=== PATIENT | female | born 1945 | race Caucasian/White ===

== ENCOUNTER 2019-07-21 16:00 | Emergency (ER) | payer OTHER, SELFPAY ==
[2019-07-21 16:28] VITALS: BP 152/88; PULSE 97; RESP 16; TEMP 36.6; O2SAT 96; BMI 25.6
--- NOTE | 2019-07-21 19:22 | ECG_ITS ---
Measurements Intervals [place] Rate: 83 P: 30 GA: 160 QRS: 4 QRSD: 68 T: 36 QT: 376 QTc: 442 SINUS RHYTHM LOW QRS VOLTAGE IN PRECORDIAL LEADS [QRS DEFLECTION < 1.0 mV IN CHEST LEADS] Compared to ECG 05/03/2019 17:25:44 Low QRS voltage now present Electronically Signed On 07-22-2019 6:46:41 INFORMATION TECHNOLOGY PROJECT MANAGER by Camryn Michel M.D. [id number]
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
--- NOTE | 2019-07-21 19:22 | XR_ITS ---
WS: [id number] Chest PA view, 07/21/2019 Clinical Data: admission Comparison: PA and lateral chest, 11/17/2017 Findings: No nodules, masses or effusions are seen. The heart is normal. The pulmonary vascularity is not increased. No pneumonia or pneumothorax is seen. There is a right cardiophrenic fat pad or cyst present. The aortic arch and descending aorta show mild calcification and tortuosity. XR/XR chest 1V portable [id number] Impression: Atherosclerosis.
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
--- NOTE | 2019-07-21 19:38 | PC.NURSE ---
Patient taken to radiology via wheelchair. Patient complaining of waiting times.
[2019-07-21 21:19] VITALS: BP 141/74; PULSE 85; RESP 18; O2SAT 96
== END 2019-07-21 21:22 | disposition home or self-care (01) ==
PROVIDERS: Emergency Provider Nurse Practitioner Family; Family Provider Family Medicine; PCP Family Medicine
DX: S29.012A Strain of muscle and tendon of back wall of thorax, initial encounter (principal); V89.2XXA Person injured in unspecified motor-vehicle accident, traffic, initial encounter; Z87.891 Personal history of nicotine dependence
CPT/HCPCS: 71045; 72040; 72072; 93005; 99282

== ENCOUNTER → 2019-11-05 13:17 | Outpatient (BNVA) | payer OTHER, SELFPAY | PROVIDERS: Family Provider Family Medicine; PCP Family Medicine; Referring Provider Family Medicine; Visit Provider Orthopaedic Surgery | DX: M25.511 Pain in right shoulder (principal) | CPT/HCPCS: 73030 ==

== ENCOUNTER 2021-03-29 11:56 | Outpatient (CLI) | payer MEDICARE, SELFPAY ==
--- NOTE | 2021-03-29 12:07 | MM_ITS ---
WS: [id number] BILATERAL SCREENING DIGITAL MAMMOGRAM WITH CAD HISTORY: SCREENING COMPARISON: 02/19/2019 and 11/17/2017 Bilateral CC and MLO views submitted. Computer aided detection analyzed. Breast composition: There are scattered areas of fibroglandular density. No suspicious masses, microc alcifications or architectural distortion. Benign intramammary lymph nodes. MM/[id number] IMPRESSION: BI-RADS: 2-Benign FOLLOW UP: 1 Year Follow-up
== END 2021-03-29 11:57 | disposition home or self-care (01) ==
PROVIDERS: PCP Family Medicine; Visit Provider Family Medicine
DX: Z12.31 Encounter for screening mammogram for malignant neoplasm of breast (principal)
CPT/HCPCS: 77067

== ENCOUNTER 2021-11-29 10:33 | Emergency (ER) | payer MEDICARE, SELFPAY ==
[2021-11-29 11:17] VITALS: BP 138/85; PULSE 76; RESP 18; O2SAT 96; BMI 26.6
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
[2021-11-29 12:21] VITALS: BP 132/76; PULSE 84; RESP 16; O2SAT 97
--- NOTE | 2021-11-29 12:23 | MR_ITS ---
WS: [id number] MRI HEAD WITHOUT CONTRAST TECHNIQUE: Sagittal T1, T2 axial, T2 axial FLAIR, axial and coronal T1 images, axial susceptibility w eighted imaging, axial diffusion weighted images, and coronal T2 images were obtained. CLINICAL INFORMATION: visual field changes with vertigo COMPARISON: MRI [id number] FINDINGS: Patchy area of restricted diffusion involving the RIGHT parasagittal occipital lobe consistent with a cute ischemia. Mild associated edema in this area. Area of acute ischemia measures approximately 2.5 x 1.8 cm and involves the cortex. No other foci of restricted diffusion. No midline shift or signific ant mass effect. Moderate chronic small vessel changes. Moderate parenchymal volume loss. A few tiny chronic lacunar infarcts in the cerebellum. Normal vascular flow voids at the skull base. No extra-axial fluid collec tions. Mucosal thickening in the paranasal sinuses. Visualized orbits are normal. Mastoid air cells w ell aerated. Normal posterior nasopharynx and parapharyngeal fat. Mild small vessel changes in the toan. No significant hemosiderin on the susceptibly weighted images. Normal optic chiasm and pituitary infundibulum. Moderate symmetric atrophy temporal lobes and hippoc ampal formations. Normal cavernous sinuses and Meckel's cave. MR/MR head wo con* [id number] IMPRESSION: 1. Patchy acute ischemia involving the RIGHT parasagittal occipital lobe invol ving the cortex described above measuring 2.5 x 1.8 cm. 2. Mild associated edema in the area of ischemia. No significant mass effect o r midline shift. 3. Moderate small vessel changes with moderate parenchymal volume loss. 4. No hemosiderin on susceptibly weighted images. 5. No other acute findings. Notified Gurjit Sylvester DO at 11/29/2021 4:24 PM.
[2021-11-29 12:52] LABS: Basophils # 0.1 10^3/uL (0.0-0.1); Basophils % 0.9 %; Eosinophils # 0.4 10^3/uL (0.0-0.8); Eosinophils % 5.1 %; Hematocrit 43.8 % (37.0-47.0); Hemoglobin 14.4 g/dL (11.5-15.3); Lymphocytes # 1.8 10^3/uL (0.8-4.8); Lymphocytes % 21.3 %; Mean Corpuscular HGB Conc 32.9 g/dL (30.0-36.0); Mean Corpuscular Hemoglobin 30.4 pg (28.0-34.0); Mean Corpuscular Volume 92.4 fl (81-99); Mean Platelet Volume 9.2 fL (7.4-10.4); Monocytes # 0.9 10^3/uL (0.2-0.9); Monocytes % 10.4 %; Neutrophils # 5.34 10^3/uL (1.8-7.7); Neutrophils % 61.8 %; Nucleated Red Blood Cells % 0 %; Platelet Count 342 10^3/cmm (130-400); Red Blood Count 4.74 10^6/uL (4.1-5.3); Red Cell Distribution Width 13.2 % (12.1-15.1); White Blood Count 8.6 10^3/uL (4.0-10.0)
[2021-11-29] MEDS: loperamide 2 mg Capsule 4 MG PO (13:07)
[2021-11-29 13:08] LABS: Erythrocyte Sedimentation Rate 13 mm/hr (0-15)
[2021-11-29 13:17] LABS: Alanine Aminotransferase 12 U/L (0-33); Albumin Level 4.4 g/dL (3.5-5.2); Alkaline Phosphatase 109 IU/L (35-105); Anion Gap 15.5 (5-19); Aspartate Amino Transferase 22 U/L (0-32); Blood Urea Nitrogen 15 mg/dL (8-23); Calcium 9.4 mg/dL (8.5-10.5); Carbon Dioxide 25 mmol/L (22-29); Chloride 104 mmol/L (98-107); Globulin 3.8 g/dL (1.3-4.6); Glucose 84 mg/dL (65-115); Osmolality Calculated 292 mOsm/kg (285-295); Potassium 3.5 mmol/L (3.5-5.1); Sodium 141 mmol/L (136-145); Total Bilirubin 0.2 mg/dL (0.15-1.2); Total Protein 8.2 g/dL (6.6-8.7)
[2021-11-29 14:01] VITALS: BP 147/81; PULSE 97; RESP 16; O2SAT 97
[2021-11-29 16:00] VITALS: BP 144/74; PULSE 79; RESP 14; O2SAT 97
--- NOTE | 2021-11-29 17:25 | PM.MISC ---
Miscellaneous Note Purpose of Documentation: Neuro Note: I was called by the emergency department physician. This 76-year-old woman has had symptoms for a week and has hallucinations out of her left hemifield. He did an MRI and diagnosed a right occipital stroke. She does not have any deficit except for her visual field loss. I recommended Plavix, aspirin, Lipitor and follow-up with neurology within 2 weeks. I asked him to set her up for an MRA without contrast, cervical and intracranial.
[2021-11-29 17:48] VITALS: BP 140/89; PULSE 76; RESP 14; O2SAT 95
[2021-11-29 18:12] VITALS: BP 140/89; PULSE 76; RESP 14; O2SAT 95
== END 2021-11-29 18:14 | disposition home or self-care (01) ==
PROVIDERS: Emergency Provider Emergency Medicine; PCP Family Medicine
DX: I63.9 Cerebral infarction, unspecified (principal); H53.8 Other visual disturbances; R42 Dizziness and giddiness; R44.1 Visual hallucinations; R35.0 Frequency of micturition; R39.15 Urgency of urination; Z87.891 Personal history of nicotine dependence; Z82.49 Family history of ischemic heart disease and other diseases of the circulatory system
CPT/HCPCS: 70551; 80053; 85025; 85651; 99283

== ENCOUNTER → 2021-12-19 14:05 | Outpatient (BNVA) | payer MEDICARE, SELFPAY | PROVIDERS: PCP Family Medicine; Visit Provider Specialist | DX: I69.398 Other sequelae of cerebral infarction (principal); H53.40 Unspecified visual field defects; G31.84 Mild cognitive impairment of uncertain or unknown etiology | CPT/HCPCS: 99204; 99205 ==

== ENCOUNTER → 2021-12-31 12:35 | Outpatient (BNVA) | payer MEDICARE, SELFPAY | PROVIDERS: PCP Family Medicine; Visit Provider Internal Medicine | DX: I63.531 Cerebral infarction due to unspecified occlusion or stenosis of right posterior cerebral artery (principal); I49.1 Atrial premature depolarization; I49.3 Ventricular premature depolarization | CPT/HCPCS: 93270 ==

== ENCOUNTER 2022-02-04 12:24 | Outpatient (CLI) | payer MEDICARE, SELFPAY ==
--- NOTE | 2022-02-04 13:00 | MR_ITS ---
WS: [id number] MRA ANGIOGRAPHY LIME OF [place] HISTORY: I63.531 - Cerebral infarction due to unspecified occlusion. COMPARISON: MRI head 11/29/2021 TECHNIQUE: 3-D MR angiography is performed of the [place] of [place]. All images are reviewed including source images. Absent distal RIGHT vertebral artery. Very similar to the prior MRI from 2019. Dominant LEFT vertebra l artery. Normal size basilar artery. Posterior cerebral arteries are patent. No occlusion or stenosi s.. Small caliber posterior communicating arteries. Intracranial portion of the internal carotid arteries are normal course and caliber. No significant a therosclerosis, stenosis or aneurysm identified. Middle and anterior cerebral arteries are both paten t with no significant disease. Anterior communicating artery is also normal. Remote infarct noted in the RIGHT parasagittal occipital lobe. MR/MR angio head wo con [id number] IMPRESSION: 1. No acute thrombus or occlusion. 2. Nonvisualization of the distal RIGHT vertebral artery. Very similar to the prior examination from 2019 MRI brain, nonacute. There is a dominant large LEFT vertebral artery. 3. No stenosis or occlusions or significant atherosclerotic disease.
--- NOTE | 2022-02-04 13:45 | MR_ITS ---
WS: [id number] MRA CAROTID ARTERIES HISTORY: H53.40 - Unspecified visual field defects COMPARISON: MRI brain 11/29/2021 and 03/15/2019 TECHNIQUE: MRA is performed with intravenous gadolinium. MIP and source images are reviewed. Right: Normal caliber and signal within the RIGHT cervical carotid artery. The bifurcation is widely patent. No occlusions to the skull base. Normal bifurcation. Left: Normal caliber and signal within the LEFT cervical carotid artery. The bifurcation is widely pa tent. No occlusions to the skull base. Normal bifurcation. Subclavian Arteries: Not visualized. Vertebral Arteries: Dominant LEFT vertebral artery. The RIGHT vertebral artery is not evident. This w as also not evident on the study of 03/15/2019. May be chronically occluded or congenital finding. MR/MR angio neck wo con [id number] IMPRESSION: 1. Cervical carotid arteries are widely patent with no significant stenosis. 2. Absent RIGHT vertebral artery. Unchanged from the study from 03/15/2019.
== END 2022-02-04 12:25 | disposition home or self-care (01) ==
PROVIDERS: PCP Family Medicine; Visit Provider Specialist
DX: I63.531 Cerebral infarction due to unspecified occlusion or stenosis of right posterior cerebral artery (principal); H53.40 Unspecified visual field defects
CPT/HCPCS: 70544; 70547

== ENCOUNTER → 2022-05-07 10:47 | Outpatient (BNVA) | payer MEDICARE, SELFPAY | PROVIDERS: PCP Family Medicine; Visit Provider Specialist | DX: G25.3 Myoclonus (principal); H53.452 Other localized visual field defect, left eye; I69.398 Other sequelae of cerebral infarction; Z79.01 Long term (current) use of anticoagulants | CPT/HCPCS: 99214 ==

== ENCOUNTER 2022-06-21 14:22 | Outpatient (CLI) | payer MEDICARE, SELFPAY ==
--- NOTE | 2022-06-21 14:27 | MM_ITS ---
WS: [id number] BILATERAL 3D TOMOSYNTHESIS DIGITAL SCREENING MAMMOGRAPHY WITH CAD CLINICAL INFORMATION: SCREENING HISTORY: Screening mammogram. No current complaints. COMPARISON: 2020 TECHNIQUE: Bilateral CC and MLO views. FINDINGS: Scattered fibroglandular densities bilaterally. No suspicious focal mass, asymmetry, calcifications, or architectural distortion. No evidence of malignancy. Vascular calcification. MM/[place] [id number] IMPRESSION: BI-RADS: 2-Benign FOLLOW UP: 1 Year Follow-up Recommend return to annual screening mammography.
== END 2022-06-21 14:23 | disposition home or self-care (01) ==
LOC: RAD 14:23
PROVIDERS: PCP Family Medicine; Visit Provider Family Medicine
DX: Z12.31 Encounter for screening mammogram for malignant neoplasm of breast (principal)
CPT/HCPCS: 77063; 77067

== ENCOUNTER 2023-07-23 11:31 | Outpatient (CLI) | payer MEDICARE, SELFPAY ==
--- NOTE | 2023-07-23 11:35 | MM_ITS ---
WS: [id number] Bilateral screening 3D tomosynthesis digital mammogram, 07/23/2023 Clinical Data: SCREENING Comparison: 06/21/2022, 03/29/2021, 02/19/2019, 10/21/2017, 11/15/2015, 08/10/2013, 04/30/2012, 06/24/2006. Findings: The breast parenchymal pattern shows fibroglandular tissue. No spiculated masses or clustered calcifi cations are seen. There are no secondary signs of carcinoma. Impression: 1. Negative bilateral mammogram unchanged. 2. Recommend annual screening mammograms. MM/[place] [id number] BIRADS: 1-Negative FOLLOW UP: 1 Year Follow-up The CAD raspberry checker was used.
== END 2023-07-23 11:32 | disposition home or self-care (01) ==
LOC: RAD 11:31
PROVIDERS: PCP Family Medicine; Visit Provider Family Medicine
DX: Z12.31 Encounter for screening mammogram for malignant neoplasm of breast (principal)
CPT/HCPCS: 77063; 77067

== ENCOUNTER 2024-12-08 12:59 | Outpatient (CLI) | payer MEDICARE, SELFPAY ==
--- NOTE | 2024-12-08 13:00 | MM_ITS ---
WS: [id number] BILATERAL 3D TOMOSYNTHESIS DIGITAL SCREENING MAMMOGRAPHY WITH CAD CLINICAL INFORMATION: screening HISTORY: Screening mammogram. No current complaints. COMPARISON: 2023 TECHNIQUE: Bilateral CC and MLO views. FINDINGS: Scattered fibroglandular densities bilaterally. No suspicious focal mass, asymmetry, calcifications, or architectural distortion. No evidence of malignancy. Vascular calcification. MM/MM scr tomosynthesis [id number] IMPRESSION: DENSITY: There are scattered areas of fibroglandular density. BI-RADS: 2 - Benign. FOLLOW UP: 1 Year Follow-up Recommend return to annual screening mammography.
--- NOTE | 2024-12-08 13:05 | XR_ITS ---
WS: [id number] DEXA (DUAL ENERGY X-RAY ABSORPTIOMETRY) Bone mineral density was performed using a [employer] machine. HISTORY: screening COMPARISON: 02/15/2019 Lumbar spine BMD (L1-L4): 1.242 g/cm2 T score: 0.5 Z score: 2.4 Total hip BMD: Left: 0.820 g/cm2. T score: -1.5 Z score: 0.4 Right: 0.837 g/cm2. T score: -1.4 Z score: 0.6 10 year probability of a major osteoporotic fracture is 12.6%. Compared to the prior study from 02/15/2019. Lumbar spine bone mineral density has increased by 3.6%. Bilateral hips bone mineral density has decreased by 3.7%. XR/XR DEXA axial skeleton* [id number] IMPRESSION: OSTEOPENIA based upon the WHO classification for females. Significant increase in bone mineral density within the lumbar spine since the prior exam. Significant decrease in bone mineral density within the hips since the prior ex am.
== END 2024-12-08 13:00 | disposition home or self-care (01) ==
LOC: RAD 13:00
PROVIDERS: PCP Family Medicine; Visit Provider Family Medicine
DX: Z12.31 Encounter for screening mammogram for malignant neoplasm of breast (principal); M81.0 Age-related osteoporosis without current pathological fracture; Z13.820 Encounter for screening for osteoporosis; M85.80 Other specified disorders of bone density and structure, unspecified site; R92.323 Mammographic fibroglandular density, bilateral breasts; R92.1 Mammographic calcification found on diagnostic imaging of breast
CPT/HCPCS: 77063; 77067; 77080

== ENCOUNTER → 2025-02-07 14:52 | Outpatient (BNVA) | payer MEDICARE, SELFPAY | PROVIDERS: PCP Family Medicine; Visit Provider Family Medicine | DX: I10 Essential (primary) hypertension (principal) | CPT/HCPCS: 80053; 80061; 84439; 84443; 85025 ==